=== PATIENT | female | born 1965 | race Caucasian/White ===

== ENCOUNTER 2019-11-25 13:00 | Emergency (ER) | payer OTHER ==
[~2019-11-25] VITALS: Ht 172.7 cm; Wt 125.0 kg
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
[2019-11-25 13:41] LABS: BASOPHILS # (AUTO) 0.03 x10^3/uL (0-0.1); BASOPHILS % (AUTO) 0 % (0-1); EOSINOPHILS # (AUTO) 0.05 x10^3/uL (0-0.4); EOSINOPHILS % (AUTO) 1 % (1-7); LYMPHOCYTES # (AUTO) 1.28 x10^3/uL (1-3.4); LYMPHOCYTES % (AUTO) 16 % (22-44); MD NO; MEAN CORPUSCULAR HEMOGLOBIN 30.3 pg (27.0-34.8); MEAN CORPUSCULAR HGB CONC 33.5 g/dL (32.4-35.8); MEAN PLATELET VOLUME 8.6 fL (7.4-10.4); MONOCYTES # (AUTO) 0.47 x10^3/uL (0.2-0.8); MONOCYTES % (AUTO) 6 % (2-9); NEUTROPHILS # (AUTO) 6.38 x10^3/uL (1.8-6.8); NEUTROPHILS % (AUTO) 78 % (42-75); PLATELET COUNT 323 x10^3/uL (130-400); RED BLOOD COUNT 5.08 x10^6/uL (3.82-5.3); RED CELL DISTRIBUTION WIDTH 13.4 % (9.6-15.2)
[2019-11-25 13:52] LABS: AMPHETAMINE SCREEN, URINE Negative (Negative); BARBITURATE SCREEN, URINE Negative (Negative); BENZODIAZEPINE SCREEN, URINE Negative (Negative); CANNABINOID SCREEN, URINE Positive (Negative); COCAINE SCREEN, URINE Negative (Negative); METHADONE SCREEN, URINE Negative (Negative); OPIATE SCREEN, URINE Negative (Negative)
[2019-11-25 13:55] LABS: ALBUMIN 3.7 g/dL (3.4-5.0); ANION GAP 8 mmol/L (5-15); CALCIUM 8.7 mg/dL (8.5-10.1); CHLORIDE 108 mmol/L (98-107)
[2019-11-25 14:01] LABS: ALANINE AMINOTRANSFERASE 24 U/L (12-78); ALKALINE PHOSPHATASE 102 U/L (45-117); BILIRUBIN,TOTAL 1.1 mg/dL (0.2-1.0); CREATININE 0.77 mg/dL (0.55-1.02); TOTAL PROTEIN 7.2 g/dL (6.4-8.2); TROPONIN I 0.015 ng/mL (0.000-0.045)
[2019-11-25 14:04] LABS: SALICYLATE LEVEL < 1.7 mg/dL (2.8-20.0)
--- NOTE | 2019-11-25 14:40 | NUR ---
PT PROVIDED WITH WATER PER PT'S REQUEST. PT SEEMS SLIGHTLY TEARFUL AND HAS LESS OF A FLAT AFFECT AT THIS TIME. PT AO X 4. SKIN PWD. RESP EVEN AND UNLABORED. PT CALM AND COOPERATIVE AT THIS TIME. PT'S HERE AND PT OKAY WITH A VISITOR. GARAGE DOORS DOWN IN ROOM. SITTER AT DOORSIDE. WILL CONT TO MONITOR PT.
--- NOTE | 2019-11-25 17:00 | NUR ---
PT PROVIDED WITH DINNER TRAY. PT HAD REFUSED LUNCH TRAY EARLIER, BUT ATE HALF OF DINNER TRAY AND ACCEPTED SOME WATER. AT BEDSIDE. PT CALM AND COOPERATIVE. PT MORE TALKATIVE AT THIS TIME. PT RE-ASKED ABOUT ANY MEDICATIONS THAT SHE TAKES. PT DENIES TAKING ANY MEDICATOIN. PT AO X 4. SKIN PWD. RESP EVEN AND UNLABORED. CALL LIGHT WITHIN REACH. WILL CONT TO MONITOR PT.
--- NOTE | 2019-11-25 17:29 | NUR ---
PACKET FAXED TO [facility]
--- NOTE | 2019-11-25 18:02 | NUR ---
PT CURRENTLY SITTING ON BED. NO ACUTE DISTRESS NOTED. PT AO X 4. SKIN PWD. REPS EVEN AND UNLABORED. AT BEDSIDE. GARAGE DOORS DOWN IN ROOM. BELONGINGS IN LOCKED LOCKER. SITTER AT DOORSIDE. WILL CONT TO MONITOR PT.
--- NOTE | 2019-11-25 18:39 | NUR ---
ACCEPTED BY GERTRUDIS AT [facility]. ACCEPTING MD. PT CAN NOT GO UNTIL 0700 TOMORROW MORNING
--- NOTE | 2019-11-25 18:51 | NUR ---
REPORT TO ASHWIN ALAN WHO ASSUMED CARE OF PT.
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
--- NOTE | 2019-11-25 19:08 | NUR ---
RN TO DC IV PER ERP.
[2019-11-25] MEDS ORDERED: ACETAMINOPHEN 325 MG TABLET ONE (19:13)
--- NOTE | 2019-11-25 19:16 | NUR ---
PT MEDICATED PER MAR FOR A HEADACHE. GROSS NEURO INTACT. NO DEFICITS NOTED. NO OTHER CHANGES IN CONDITION. SITTER IN LINE OF SIGHT. TM.
--- NOTE | 2019-11-25 19:26 | NUR ---
PT GIVEN WARM BLANKET FOR COMFORT. WCTM. NO CHANGE IN CONDITION AT THIS TIME.
[2019-11-25] MEDS ORDERED: ACETAMINOPHEN 325 MG TABLET PO ONE (19:30)
--- NOTE | 2019-11-25 19:39 | NUR ---
PT UPDATE ON POC AND PLAN TO TRANSFER TO [facility] IN AM. PT DENIES ADDITIONAL QUESTIONS OR NEEDS AT THIS TIME. WCTM. SITTER IN LINE OF SIGHT.
--- NOTE | 2019-11-25 20:40 | NUR ---
RN ORDERED HOSPITAL BED, PT PLACED ON HOSPITAL BED FOR MORE COMFORT. PT CONDITION UNCHANGED, SITTER IN LINE OF SIGHT. WCTM. WAITING TO TRANSFER TO [facility] TOMORROW AM AT 0700
--- NOTE | 2019-11-25 22:19 | NUR ---
pt resting on hospital bed, no change in condition, eyes closed, appears comfortable. sitter in line of sight. WCELSA. pt to josh to [facility] in am.
--- NOTE | 2019-11-25 23:38 | NUR ---
pt resting in hospital bed, eyes closed, appears comfortable, chest rise and fall noted equal bilaterally, lights dimmed for comfort. NAD, sitter in line of sight. WCTM. pt to transfer to [facility] in am.
--- NOTE | 2019-11-26 01:00 | NUR ---
LATE ENTRY: pt resting on side in hospital bed. pt eyes closed, P/W/D, resp wnl. sitter in line of sight. WCTM.
--- NOTE | 2019-11-26 01:58 | NUR ---
pt resting in hospital bed, eyes closed, appears comfortable, chest rise and fall noted equal bilaterally, lights dimmed for comfort. NAD, sitter in line of sight. WCTM. pt to transfer to [facility] in am.
--- NOTE | 2019-11-26 02:45 | NUR ---
pt given water per request. reports that her headache is still there. pt NAD, P/W/D, RESP WNL, WCTM. sitter in line of sight.
--- NOTE | 2019-11-26 03:49 | NUR ---
PT RESTING IN HOSPITAL BED, APPEARS COMFORTABLE, NAD, NO CHANGE IN CONDITION, EYES CLOSED. WCTM.
--- NOTE | 2019-11-26 04:20 | NUR ---
pt laying in gurney. appears comfortable, NAD, eyes closed. sitter in line of sight. WCTM.
--- NOTE | 2019-11-26 04:49 | NUR ---
MT: [facility] contacted to arrange transport at 0630.
--- NOTE | 2019-11-26 04:52 | NUR ---
RN ATTEMPTED TO CALL [facility] TO GIVE REPORT. NURSE AT [facility] UNABLE TO TAKE REPORT AT THIS TIME. WILL CALL BACK LATER.
--- NOTE | 2019-11-26 05:32 | NUR ---
pt resting in gurney, eyes closed, NAD, RESP WNL, sitter in line of sight. Pt to transfer to [facility] at 0630. WCTM.
--- NOTE | 2019-11-26 05:45 | NUR ---
RN ATTEMPTED TO REACH [facility] AGAIN. [facility] UNABLE TO TAKE REPORT AT THIS TIME. PT SITTING UP ON SIDE OF BED, APPEARS COMFORTABLE. NAD, VSS. P/W/D. SITTER IN LINE OF SIGHT. PT DENIES ADDITIONAL NEEDS AT THIS TIME. PT AFFECT NOTED TO BE FLAT. WCTM.
--- NOTE | 2019-11-26 05:53 | NUR ---
REPORT CALLED TO SCARLET CHRISTOPHER AT [facility]. PT CARE TO BE TRANSFERRED UPON GOING BY [facility] TO FACILITY.
[2019-11-26 06:08] VITALS: BP 134/86
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
== END 2019-11-26 06:27 ==
LOC: ED 16:25
DX: R45.851 Suicidal ideations (principal); R55 Syncope and collapse; R00.0 Tachycardia, unspecified
CPT/HCPCS: 36415; 80053; 80307; 84484; 85025; 93005; 99285